=== PATIENT | female | born 1945 | race Caucasian/White ===

== ENCOUNTER 2016-11-23 09:48 | Inpatient (IN) | payer OTHER ==
[~2016-11-23] VITALS: Ht 152.4 cm; Wt 62.6 kg
--- NOTE | ~2016-11-23 | S ---
[facility] [place] [address] SURGICAL PATH RPT PROCEDURE Name: ADELSO BAGLEY Room #: 447-P DIS IN M.R.#: [id number] Admission: 11/23/16 Date of : 45 Discharge: 11/29/16 Report #: [id number] Path Case #: [id number] PATHOLOGY REPORT COLLECTION DATE: 11/28/2016 RECEIVED DATE: 11/29/2016 SUBMITTING PHYS: Dr. Leslie Patrick OTHER PHYS: Dr. Jesus Knowles SPECIMEN(S) RECEIVED: A.Liver * * * * * * * * * * * * FINAL DIAGNOSIS: Liver, mass, needle core biopsy: - METASTATIC ADENOCARCINOMA, FAVOR COLONIC ORIGIN (PLEASE SEE COMMENT). (IUV:elizabeth; 11/30/2016) COMMENT: Examination shows a gland forming malignancy with areas of "dirty necrosis". Immunohistochemical stains are performed to support the diagnosis rendered. (Block A1) CK7 Nonreactive within the neoplasm CK20 - Strongly membranous reactivity present CDX2 - Nuclear reactivity present CK19 - Strongly membranous reactivity present HSA Nonreactive within the neoplasm Co-review: Dr. Hang Rendon Findings are relayed to Dr. Leslie Patrick at approximately 3:15 p.m. on 11/30/2016. PATHOLOGIST: Arianna Matthews M.D. REPORT ELECTRONICALLY SIGNED BY: Arianna Matthews M.D. DATE/TIME: 12/01/2016 11:55 * * * * * * * * * * * * GROSS PATHOLOGY: Received in formalin labeled "Adelso Bagley, liver biopsy," are 6 distinct needle cores of cruz soft tissue ranging from 0.7 to 1.5 cm in length, which are submitted entirely in cassette A1. (SNA; 11/29/2016) [facility] [address] [place] [address] SURGICAL PATH RPT PROCEDURE Name: YUDIADELSO P Room #: 447-P [facility] IN M.R.#: [id number] Admission: 11/23/16 Date of : 45 Discharge: 11/29/16 Report #: [id number] Path Case #: [id number] CLINICAL HISTORY: 71 year-old female, liver metastases from sigmoid INITIAL CPT CODE(S): A; 47711, 43556, 48885, 92054, 96462, 22062, 06902 Professional services performed by [facility] at [facility] [address], [place] [address] Technical services performed by [facility] at [address] [place] [address], [address], [place] [address]. [facility] [address] [address] PHONE: [phone] DIRECTOR: Sha Mac M.D. * * * END OF REPORT * * *
--- NOTE | ~2016-11-23 | S ---
[facility] [place] [address] SURGICAL PATH RPT PROCEDURE Name: ADELSO BAGLEY Otilio Room #: 447-P [facility] IN M.R.#: [id number] Admission: 11/23/16 Date of : 45 Discharge: Report #: [id number] Path Case #: [id number] PATHOLOGY REPORT COLLECTION DATE: 11/27/2016 RECEIVED DATE: 11/27/2016 SUBMITTING PHYS: Dr. Slade Arciniega OTHER PHYS: Dr. 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 COMMENT: Co-Review: Dr. Hang Rendon. Findings are telephoned to Dr. Demian Tolentino's nurse at 1:40 pm on 11/28/16. (IUV:mml; 11/28/2016) PATHOLOGIST: Arianna Matthews M.D. REPORT ELECTRONICALLY SIGNED BY: Arianna Matthews M.D. DATE/TIME: 11/28/2016 13:40 * * * * * * * * * * * * GROSS PATHOLOGY: Received in formalin labeled "Adelso Bagley, biopsy of sigmoid mass," are multiple (greater than 10) segments of cruz soft tissue measuring 1.0 x 0.9 x 0.2 cm in aggregate dimensions and ranging from 0.1 to 0.5 cm in maximum dimension. The specimen is submitted entirely in cassette A1. (CAA; 11/27/2016) CLINICAL HISTORY: Colon mass INITIAL CPT CODE(S): A; 71666 Professional services performed by [facility] at [address], [place] [address] [facility] [address] [address] SURGICAL PATH RPT PROCEDURE Name: ADELSO BAGLEY Room #: 447-P [facility] IN ..#: [id number] Admission: 11/23/16 Date of : 45 Discharge: Report #: [id number] Path Case #: [id number] Technical services performed by [facility] at [address] [place] [address], [facility] [address] [place] [address]. Dr. Demian Cameron [address] [place] [address] PHONE: [phone] DIRECTOR: Sha Mac M.D. * * * END OF REPORT * * *
[2016-11-23 11:25] VITALS: BP 128/70
[2016-11-23] MEDS ORDERED: FISH OIL 1,001000 M2 PO (11:27)
[2016-11-23] MEDS ORDERED: EPIPEN 2-P0.3 MG/0.3 IM (11:28)
[2016-11-23] MEDS ORDERED: GLIPIZIDE 10 MG10 MG PO (11:29)
[2016-11-23] MEDS ORDERED: BYSTOLIC 5 MG5 M1 PO (11:33)
[2016-11-23] MEDS ORDERED: COZAAR 50 MG TA50 M2 PO (11:33)
[2016-11-23] MEDS ORDERED: NITROGLYCERIN0.4 MG PO (11:36)
[2016-11-23] MEDS ORDERED: IRON325 PO (11:36)
[2016-11-23 13:42] LABS: HEMATOCRIT 28.7 % (37.0-47.0); MCH 23.2 pg (26.0-34.0); MCHC 31.5 g/dL (28.0-37.0); MCV 73.6 fL (80.0-100.0); RBC 3.9 mil/uL (4.20-5.00); WBC 14.3 thou/uL (4.0-11.0)
[2016-11-23 13:52] LABS: CALCIUM 8.8 mg/dL (8.5-10.1)
[2016-11-23 13:57] LABS: ALBUMIN 1.9 g/dL (3.4-5.0); TOTAL BILIRUBIN 0.4 mg/dL (<0.1-1.0); TOTAL PROTEIN 6.8 g/dL (6.4-8.2)
[2016-11-23 16:00] VITALS: BP 133/58
[2016-11-23 16:19] LABS: URINE BILIRUBIN NEGATIVE (Negative); URINE BLOOD 2+ (Negative); URINE COLOR YELLOW; URINE GLUCOSE-RANDOM* NEGATIVE (Negative); URINE KETONES NEGATIVE (Negative); URINE NITRITE NEGATIVE (Negative); URINE PROTEIN (DIPSTICK) TRACE (Negative); URINE SPECIFIC GRAVITY 1.015 (1.003-1.035); URINE UROBILINOGEN 0.2 E.U./dl (0.2-1.0)
[2016-11-23 16:27] LABS: HYALINE CASTS 0-3 Few /LPF (None Seen); SQUAMOUS 4-10 Moderate /LPF (0-3)
[2016-11-23 16:28] LABS: BACTERIA 1-9 Few /HPF (None Seen); URINE WBC 6-15 Few /HPF (0-5)
[2016-11-23 16:29] LABS: AMORPHOUS URATES Few /LPF (None Seen)
[2016-11-23 16:30] LABS: URINE CREATININE-RANDOM* 86.5 mg/dL
[2016-11-23 20:00] VITALS: BP 123/61
[2016-11-24 03:30] VITALS: BP 126/50
[2016-11-24 06:21] LABS: HEMATOCRIT 24.4 % (37.0-47.0); MCH 23.9 pg (26.0-34.0); MCHC 32.8 g/dL (28.0-37.0); MCV 72.9 fL (80.0-100.0); RBC 3.35 mil/uL (4.20-5.00); RDW 18.7 % (10.5-14.5); WBC 12.1 thou/uL (4.0-11.0)
[2016-11-24 06:38] LABS: CALCIUM 7.8 mg/dL (8.5-10.1); CREATININE 5.2 mg/dL (0.6-1.0); POTASSIUM 3.2 mmol/L (3.5-5.1)
[2016-11-24 07:46] VITALS: BP 128/56
[2016-11-24 15:55] VITALS: BP 146/62
[2016-11-24 20:00] VITALS: BP 137/68
[2016-11-25 04:00] VITALS: BP 115/43
[2016-11-25 04:16] LABS: ALBUMIN 1.6 g/dL (3.4-5.0); CALCIUM 8.2 mg/dL (8.5-10.1); CREATININE 4.2 mg/dL (0.6-1.0); PHOSPHORUS 5.5 mg/dL (2.5-4.9); POTASSIUM 3.4 mmol/L (3.5-5.1)
[2016-11-25 08:00] VITALS: BP 124/51
[2016-11-25 09:13] LABS: % SATURATION 6 % (20-39); IRON 9 ug/dL (50-170); TIBC 157 ug/dL (250-450); UIBC 148 ug/dL
[2016-11-25 16:00] VITALS: BP 124/59
[2016-11-25 19:22] VITALS: BP 119/65
[2016-11-25 19:50] LABS: CA 125 157.1 U/mL (0.0-38.1)
[2016-11-26 03:50] VITALS: BP 141/53
[2016-11-26 04:29] LABS: ALBUMIN 1.3 g/dL (3.4-5.0); CALCIUM 7.8 mg/dL (8.5-10.1); PHOSPHORUS 5.4 mg/dL (2.5-4.9)
[2016-11-26 04:31] LABS: POTASSIUM 2.7 mmol/L (3.5-5.1)
[2016-11-26 08:34] VITALS: BP 126/55
[2016-11-26 16:01] VITALS: BP 134/62
[2016-11-26 16:57] LABS: MAGNESIUM 2.3 mg/dL (1.8-2.4)
[2016-11-26 17:06] LABS: POTASSIUM 5.1 mmol/L (3.5-5.1)
[2016-11-26 19:25] VITALS: BP 115/53
[2016-11-27 04:18] VITALS: BP 118/62
[2016-11-27 05:11] LABS: HEMATOCRIT 26.4 % (37.0-47.0); HEMOGLOBIN 8.1 gm/dL (12.0-15.0); MCH 23.9 pg (26.0-34.0); MCHC 30.6 g/dL (28.0-37.0); RBC 3.37 mil/uL (4.20-5.00); RDW 18.6 % (10.5-14.5); WBC 14.2 thou/uL (4.0-11.0)
[2016-11-27 05:19] LABS: ALBUMIN 1.5 g/dL (3.4-5.0); CALCIUM 8.4 mg/dL (8.5-10.1); CREATININE 2.2 mg/dL (0.6-1.0); PHOSPHORUS 4.4 mg/dL (2.5-4.9)
[2016-11-27 05:51] LABS: POTASSIUM 3.7 mmol/L (3.5-5.1)
[2016-11-27 06:04] LABS: MCV 78.1 fL (80.0-100.0)
[2016-11-27 09:22] VITALS: BP 131/58
[2016-11-27 15:55] VITALS: BP 128/55
[2016-11-27 19:31] VITALS: BP 129/67
[2016-11-28] VITALS (10 sets, daily range): BP systolic 122–161; BP diastolic 47–75
[2016-11-28 06:50] LABS: ALBUMIN 1.4 g/dL (3.4-5.0); CREATININE 1.6 mg/dL (0.6-1.0); PHOSPHORUS 3.3 mg/dL (2.5-4.9)
[2016-11-28 06:51] LABS: POTASSIUM 2.7 mmol/L (3.5-5.1)
[2016-11-28 08:38] LABS: HEMATOCRIT 22.9 % (37.0-47.0); HEMOGLOBIN 7.4 gm/dL (12.0-15.0); MCH 24.4 pg (26.0-34.0); MCHC 32.2 g/dL (28.0-37.0); MCV 75.7 fL (80.0-100.0); RBC 3.02 mil/uL (4.20-5.00); RDW 18.5 % (10.5-14.5); WBC 9.3 thou/uL (4.0-11.0)
[2016-11-28 11:51] LABS: APTT 27.5 Seconds (24.5-32.8); INR 1.1; PROTIME 11.5 Seconds (9.3-11.4)
[2016-11-29 02:34] LABS: HEMATOCRIT 22.2 % (37.0-47.0); MCHC 31.7 g/dL (28.0-37.0); MCV 75.7 fL (80.0-100.0); RBC 2.93 mil/uL (4.20-5.00); RDW 18.3 % (10.5-14.5); WBC 8.6 thou/uL (4.0-11.0)
[2016-11-29 02:45] LABS: ALBUMIN 1.4 g/dL (3.4-5.0); CALCIUM 7.7 mg/dL (8.5-10.1); CREATININE 1.4 mg/dL (0.6-1.0); PHOSPHORUS 2.7 mg/dL (2.5-4.9); POTASSIUM 3.5 mmol/L (3.5-5.1)
[2016-11-29 04:07] VITALS: BP 145/60
[2016-11-29 08:00] VITALS: BP 144/66
[2016-11-29 12:59] VITALS: BP 160/71; BP 168/77
[2016-11-29] MEDS ORDERED: JANUVIA50 MG PO (13:29)
[2016-11-29 14:57] VITALS: BP 149/68
[2016-11-29 17:18] VITALS: BP 149/68
== END 2016-11-29 17:31 | disposition home or self-care (01) | DRG 374 ==
LOC: 4S 09:48
PROVIDERS: Hospitalist; Internal Medicine; Internal Medicine Hematology & Oncology; Internal Medicine Nephrology; Radiology Vascular & Interventional Radiology
PROC: 0DBN8ZX Excision of Sigmoid Colon, Via Natural or Artificial Opening Endoscopic, Diagnostic (ICD-10-PCS; principal; 2016-11-27)
PROC: 0FB23ZX Excision of Left Lobe Liver, Percutaneous Approach, Diagnostic (ICD-10-PCS; 2016-11-28)
DX: C18.7 Malignant neoplasm of sigmoid colon (principal); N17.0 Acute kidney failure with tubular necrosis; C78.7 Secondary malignant neoplasm of liver and intrahepatic bile duct; E87.6 Hypokalemia; D64.9 Anemia, unspecified; I10 Essential (primary) hypertension; E87.5 Hyperkalemia; E11.649 Type 2 diabetes mellitus with hypoglycemia without coma; T38.3X5A Adverse effect of insulin and oral hypoglycemic [antidiabetic] drugs, initial encounter; E78.5 Hyperlipidemia, unspecified; R19.00 Intra-abdominal and pelvic swelling, mass and lump, unspecified site; F32.9 Major depressive disorder, single episode, unspecified; I25.10 Atherosclerotic heart disease of native coronary artery without angina pectoris; Z79.899 Other long term (current) drug therapy; Z91.030 Bee allergy status; Y92.89 Other specified places as the place of occurrence of the external cause; Z82.49 Family history of ischemic heart disease and other diseases of the circulatory system
CPT/HCPCS: 10102; 62110; 62900; 70005